=== PATIENT | male | born 1965 | race Caucasian/White ===

== ENCOUNTER 2016-09-09 09:10 | Day surgery (SDC) | payer MEDICAID, OTHER ==
[2016-09-09] MEDS ORDERED: LIDOCAINE 1% 5 ML SDV ID PRN (09:47)
[2016-09-09] MEDS ORDERED: LR 1,000 ML IV ONE (09:47)
[2016-09-09] MEDS ORDERED: LIDOCAINE 2% 100 MG/5 ML SYR ONE (10:01)
[2016-09-09] MEDS ORDERED: PROPOFOL 200 MG/20 ML VIAL ONE ×2 (10:01→10:12)
[2016-09-09] MEDS ORDERED: fentaNYL 100 MCG/2 ML INJ ONE (10:01)
--- NOTE | 2016-09-09 10:46 | GPN ---
[f rep st] PROCEDURE NOTE PREPROCEDURE DIAGNOSIS: Rectal bleeding. POSTPROCEDURE DIAGNOSES: 1. Colon polyps. 2. External hemorrhoids. PROCEDURE: Colonoscopy with biopsy, colonoscopy with snare. MEDICATIONS: Monitored anesthesia care. INDICATIONS: The patient is a 51-year-old gentleman who has never had a colonoscopy. He has develo ped rectal bleeding, and he is here for a colonoscopy. The risks and the benefits of the procedure were discussed with the patient and consent obtained. Risks include, but not limited to, bleeding, perforation, and risks related to sedation. The patient is ASA class 2. DESCRIPTION OF PROCEDURE: The adult colonoscope was advanced into the terminal ileum, which appeare d normal. There was a 2 mm polyp in the cecum which was removed with cold biopsy forceps and sent t o pathology. Otherwise, the appendiceal orifice and IC valve appeared normal. The ascending colon was normal. The hepatic flexure, transverse colon, splenic flexure, and descending colon were bear l. There was a 5 mm sessile polyp in the sigmoid colon which was removed with cold snare polypectom y and sent to pathology. The rectum was normal, including retroflexed views. He has external hemor rhoids, which is likely the cause of his rectal bleeding. IMPRESSION: 1. 2 mm cecal polyp removed using cold biopsy forceps. 2. 5 mm sigmoid colon polyp removed using cold snare polypectomy technique. 3. External hemorrhoids. RECOMMENDATIONS: 1. Discharged to home with escort. 2. Advance diet as tolerated. 3. Continue current medications. 4. Follow up with the pathology results, which are available within 10 days. 5. Repeat colonoscopy based on pathology results. If 1 to 2 polyps are found to be adenomatous, re peat colonoscopy in 5 years is recommended. Otherwise, repeat colonoscopy in 10 years is recommende d. 6. Recommend topical hydrocortisone cream for external hemorrhoids. Apply twice per day for 10 day s. Thank you for allowing me to participate in the care of your patient. Please do not hesitate to susana letty with questions. /[id number]/MODL
== END 2016-09-09 11:30 | disposition home or self-care (01) ==
LOC: FSGY 09:10
PROVIDERS: ATTEND Internal Medicine Gastroenterology
PROC: 0DBN8ZX Excision of Sigmoid Colon, Via Natural or Artificial Opening Endoscopic, Diagnostic (ICD-10-PCS; principal; 2016-09-09 10:30)
PROC: 0DBH8ZX Excision of Cecum, Via Natural or Artificial Opening Endoscopic, Diagnostic (ICD-10-PCS; principal; 2016-09-09 10:30)
DX: D12.0 Benign neoplasm of cecum (principal); D12.5 Benign neoplasm of sigmoid colon; K64.4 Residual hemorrhoidal skin tags; Z83.71 Family history of colonic polyps
CPT/HCPCS: J2001; J2704; J3010

== ENCOUNTER 2017-02-26 20:25 | Emergency (ER) | payer MEDICAID ==
[2017-02-26 20:40] VITALS: BP 137/94; PULSE 82; RESP 18; TEMP 98.4; O2SAT 96
[2017-02-26] MEDS ORDERED: CHLORDIAZEPOXIDE 25MG PREPK#6 BTL TAKEHOME ONE (21:22)
--- NOTE | 2017-02-26 21:25 | EDPHY ---
H & P Stated Complaint: DETOX HPI/ROS: CHIEF COMPLAINT: Alcohol abuse, wants detox HISTORY OF PRESENT ILLNESS: Patient presents with history of alcohol abuse. He reports drinking at least 12 -20 beers per day. He has been this for years. Last intake of beer was 90 minutes ago. He is not been shaky, vomiting or hallucinating. He exhibits no complaints of chest pain or any other medical complaints. He is here because he wants to detox from alcohol. He denies any substance abuse. He is here with his significant other. She corroborates information would like to take him to the [facility] for detox. No other associated complaints or modifying factors. REVIEW OF SYSTEMS: Ten systems reviewed and are negative unless otherwise noted in the HPI PCP: Dr. trivedi SPECIALISTS: None PAST MEDICAL HISTORY: Alcoholism PAST SURGICAL HISTORY: Noncontributory SOCIAL HISTORY: Admits to tobacco use. Daily ingestion of 20 beers. Denies any illicit substance use lives in [place], [place] FAMILY HISTORY: Noncontributory EXAMINATION General Appearance: Alert, no distress Head: normocephalic, atraumatic Eyes: Pupils equal and round, no conjunctival pallor or injection ENT, Mouth: Mucous membranes moist. Airway patent Neck: Normal inspection, supple, non-tender Respiratory: Lungs are clear to auscultation. No wheezing, rhonchi or crackles Cardiovascular: Regular rate and rhythm. No murmur Gastrointestinal: Abdomen is soft and nontender Back: non-tender, no bony abnormalities Neurological: Cranial nerves 2-12 grossly intact. GCS 15. A&O, nonfocal, normal gait. No pronator drift. No dysmetria. Normal mental status Skin: Warm and dry, no rash Extremities: Nontender, no pedal edema Psychiatric: Mood and affect normal DIFFERENTIAL DIAGNOSES: Including but not limited to alcoholism, alcohol abuse, acute alcohol intoxication MDM: 9:20 p.m. Alcoholism with request to detox. The patient is here voluntarily. He is awake and alert. He is clinically appropriate for evaluation. He is ambulatory without assistance. His significant other is with him. He is asking to go to the [facility] for detox. He is not suicidal. He is not homicidal. He is mentating appropriately. He does not exhibit any evidence of withdrawals or delirium tremens. The significant other is willing to drive him to the [facility]. I do feel that he is stable for discharge to do so. Do not feel that he warrants inpatient evaluation or any further evaluation here. He is discharged in stable condition with instructions to present to the [facility] for Librium taper protocol. He and his significant other are comfortable with this plan. Source: Patient, Family, RN/MD Exam Limitations: No limitations - Personal History Current Tetanus/Diphtheria Vaccine: Unsure Current Tetanus Diphtheria and Acellular Pertussis (TDAP): Unsure - Medical/Surgical History Hx Asthma: No Hx Chronic Respiratory Disease: No Hx Diabetes: No Hx Cardiac Disease: No Hx Renal Disease: No Hx Cirrhosis: No Hx Alcoholism: Yes Hx HIV/AIDS: No Hx Splenectomy or Spleen Trauma: No Other PMH: DETOX withdrawl seizures. PSHx: denies. PMHx: alcoholism - Social History Smoking Status: Current some day smoker Constitutional: Initial Vital Signs Temperature (C) 98.4 F 02/26/17 20:37 Heart Rate 82 02/26/17 20:37 Respiratory Rate 18 02/26/17 20:37 Blood Pressure 137/94 H 02/26/17 20:37 O2 Sat (%) 96 02/26/17 20:37 O2 Delivery Mode Room Air Allergies/Adverse Reactions: No Known Allergies Allergy (Verified 09/09/16 09:43) Home Medications: Medication Instructions Recorded NK [No Known Home Meds] 02/26/17 Medical Decision Making - Data Points Medications Given: Discontinued Medications Chlordiazepoxide (Librium 25 Mg Prepack#6) 1 btl [facility] Stop: 02/26/17 21:23 Last Admin: 02/26/17 21:39 Dose: 1 btl Departure - Departure Disposition: Home, Routine, Self-Care Clinical Impression: Alcoholic intoxication Qualifiers: Complication of substance-induced condition: uncomplicated Qualified Code(s): F10.920 - Alcohol use, unspecified with intoxication, uncomplicated Alcohol dependence Qualifiers: Substance use status: uncomplicated Qualified Code(s): F10.20 - Alcohol dependence, uncomplicated Condition: Good Instructions: Chlordiazepoxide (By mouth), Alcohol Intoxication (ED), Abuse of Alcohol (ED) Additional Instructions: 1. Present to [facility] 2. ED precautions as discussed Referrals: [facility] 24 Hours [Outside] - As per Instructions
== END 2017-02-26 21:41 | disposition home or self-care (01) ==
DX: F10.20 Alcohol dependence, uncomplicated (principal); F17.200 Nicotine dependence, unspecified, uncomplicated